=== PATIENT | female | born 1985 ===

== ENCOUNTER 2016-06-30 14:53 | Emergency (ER) | payer OTHER ==
[2016-06-30 15:28] VITALS: BMI 23.0
--- NOTE | 2016-06-30 16:25 | OBHP ---
Datetime: 06/30/2016 16:05 IP Adm Impression: , intrauterine IP Admit Plan: Observation/Evaluation Admit Comment, IP Provider: 30 yo edc 10/15/16 presents with c/o bilateral back cramp type lana n with radiation to abdomen. She denies vag bleeding, coitus in past 2days, pprom or problems with p reg Prior ob hx sig for ptd @ 28wks. 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; ptd -vd pmh:asthma nkda medic: albuterol occasionally; pnv shx: denies etoh, drugs or tobaxxo pshx: denies i: 24wks with LBP _ abd prssure p: u/a ob us for cerv length Pelvic Type - PN: Adequate Extremities - PN: Normal Abdomen - PN: Normal Back - PN: Normal Lungs - PN: Normal Heart - PN: Normal Neurologic - PN: Normal HEENT - PN: Normal General - PN: Normal FHR - Baseline A Provider: 150 Membranes, Provider: Intact EGA AdmitDate IP: 24.5 IP Chief Complaint: Other NICHD Variability Prov Fetus A: Moderate 6-25bpm NICHD Accel Fetus A IP Provider: [id number] FHR Category Provider Fetus A: Category I NICHD Decel Fetus A IP Provider: None Station, Provider: high Genitourinary Exam: Normal
[2016-06-30 17:05] LABS: URINE COLOR YELLOW (YELLOW)
[2016-06-30 17:06] LABS: URINE BILIRUBIN NEGATIVE (NEGATIVE); URINE GLUCOSE (UA) NEG (Normal); URINE KETONE NEGATIVE (NEGATIVE)
[2016-06-30 17:07] LABS: URINE BLOOD NEGATIVE (NEGATIVE)
[2016-06-30 17:08] LABS: URINE LEUKOCYTE ESTERASE NEG Leu/uL (Negative); URINE PROTEIN NEGATIVE (NEGATIVE); URINE UROBILINOGEN 0.2-1.0 mg/dL (0.2-1.0)
--- NOTE | 2016-06-30 18:06 | OBHP ---
Datetime: 06/30/2016 18:02 Admit Comment, IP Provider: p: f/u this wk with ob clinic as sched Comments, ACOG Physical Exam: ob us: ega 25.1wk; efw 783g; internal review and audit compliance and fundal plac; transverse cvx: 5.4cm closed fhr 147 Datetime: 06/30/2016 16:05 EGA AdmitDate IP: 24.5
--- NOTE | 2016-06-30 18:07 | US ---
PROCEDURE: OB Pelvic Ultrasound HISTORY: for efw, presentation and cervical length COMPARISON: Comparison is made to the previous study dated 03/04/2016 FINDINGS: UTERUS: Gestational sac: Single intrauterine gestation. Heart rate: 147 bpm. age (Ultrasound estimated): 25 weeks 1 day +/- 1 week 5 days Adriane-gestational hemorrhage: None. Date of delivery (Ultrasound estimated) : 10/12/2016 The amount of amniotic fluid is adequate. The fetus is seen at transverse presentation. CERVIX: Long and closed. No cervical abnormality seen. The cervix measures 5.4 centimeter RIGHT OVARY: Was not visualized. LEFT OVARY: Was not visualized FREE FLUID: None. OTHER FINDINGS: None. IMPRESSION: Single intrauterine live with ultrasound estimated gestational age of 25 weeks 1 day +/- 1 week 5 days. Estimated date of delivery by ultrasound is 10/12/2016. Placenta seen at posterior wall. The service close measures 5.4 centimeter. The amount of amniotic fluid is adequate.
== END 2016-06-30 23:00 | disposition home or self-care (01) ==
LOC: H.EROB2 14:53
DX: O47.02 False labor before 37 completed weeks of gestation, second trimester (principal); O09.892 Supervision of other high risk pregnancies, second trimester; Z3A.25 25 weeks gestation of pregnancy